=== PATIENT | male | born 1945 | race Caucasian/White ===

== ENCOUNTER 2016-07-14 18:38 | Inpatient (IN) | payer MEDICARE ==
--- NOTE | ~2016-07-14 | DS ---
Discharge Summary [facility] [address] [facility] [place]. [address] NAME: WILY CRUZ : 49 STATUS : DIS IN PAT#: [id number] AGE: 71 ADM/REG DATE : 07/15/16 MR#: [id number] REPORT SERV DATE: 07/19/16 DICTATED BY: SYLVIA MARTIN DATE: 07/18/16 REPORT STATUS : Draft TRANSCRIBED BY: MODL DATE: 07/18/16 ADMISSION DATE: 07/15/2016 DISCHARGE DATE: 07/18/2016 REASON FOR ADMISSION: Acute blood loss anemia and melena. HISTORY OF PRESENT ILLNESS: Please refer to Dr. Seals's history and physical dated 07/14/2016 for complete details regarding the patient's admission. In brief, the patient is admitted to the Hospitalist Service for symptomatic anemia, melena, and acute on chronic anemia. HOSPITAL COURSE: The patient had an uncomplicated hospital course. He presented with hemoglobin 8.1 and it dropped slightly. Ok MUÑOZ was consulted and had written for transfusion of 1 unit packed red blood cells. He had hemoglobin checks, which had been stable since he had a transfusion. Dr. Godfrey placed a PillCam on 07/16/2016, which showed small flecks of blood seen initially in the esophagus and stomach. No sores and no significant bleeding. There was some active mild hemorrhage seen just after passage of the PillCam into the duodenal bulb at approximately 6 minutes and 51 seconds possibly from trauma related to the procedure. The entire remainder of the small bowel was unremarkable. The capsule exited the ileum and entered the cecum at 5 hours and 28 minutes. Two small flecks of blood were also seen in the colon at 6 hours and 42 minutes and 7 hours and 46 minutes, but without any suggestion of bleeding. His hemoglobin had remained stable. His Coumadin was held on admission, and GI Medicine had recommended holding his Coumadin given his strong history of bleeding in the past along with his history of angioectasias. The patient reached maximal hospitalization and will be discharged today in stable condition. DISCHARGE DIAGNOSES: Iron-deficiency anemia and acute loss anemia, now stable; chronic kidney disease stage 3; atrial fibrillation, rate controlled; history of angioectasias; chronic systolic heart failure, compensated. PROCEDURES: Include transfusion of packed red blood cells 1 unit. CONSULTATIONS: Dr. Cuevas and Dr. Godfrey. PROCEDURE: Placement of a PillCam. DISCHARGE MEDICATIONS: Include Xanax 0.5 mg at bedtime, Coreg 6.25 mg twice a day, Celexa 20 mg at bedtime, iron polysaccharide 200 mg twice, Zyrtec 10 mg every morning, losartan 25 mg every morning, Rythmol 300 mg twice a day, spironolactone 25 mg every morning, Protonix 40 mg twice a day, Zofran p.r.n. pain. He is to hold his Coumadin for one week until seen by Dr. Brian, his protohistorian, and continue Lasix 80 mg twice a day. FOLLOWUP: He will follow up with Dr. More in one week and Dr. Brian in a week. Discharge Summary [address] [address] NAME: WILY CRUZ : 49 STATUS : DIS IN PAT#: [id number] AGE: 71 ADM/REG DATE : 07/15/16 MR#: [id number] REPORT SERV DATE: 07/19/16 DICTATED BY: SYLVIA MARTIN DATE: 07/18/16 REPORT STATUS : Draft TRANSCRIBED BY: MODArgenis DATE: 07/18/16 RIZWAN Sylvia Martin MD / [id number] CC: MD Giovany Go D.O. F.A.C.P. James A Tumlin, M.D. Chad Charapata, M.D.
--- NOTE | ~2016-07-14 | CN ---
Consultation Report [facility] [address] [place]. [address] NAME: WILY PATINO : 49 STATUS : ADM Brittanie PAT#: [id number] AGE: 71 ADM/REG DATE : 07/14/16 MR#: [id number] REPORT SERV DATE: 07/15/16 DICTATED BY: DESIRE HART DATE: 07/15/16 REPORT STATUS : Draft TRANSCRIBED BY: MODL DATE: 07/15/16 GI CONSULTATION DATE OF CONSULTATION: 07/15/2016 REASON FOR CONSULTATION: Evaluation and management of melena, acute on chronic anemia, history of GI bleed. HISTORY OF PRESENT ILLNESS: Mr. Patino is a very pleasant 71-year-old male patient, known to Dr. Gray More, who presented to [facility] on 07/14 after he had labs drawn at his program development manager's office and was directed to [facility] for admission for a hemoglobin per their report of 6.9. The patient was just recently in [facility], discharged on 06/24, where he came in for GI bleeding and weakness. He did undergo an upper endoscopy with Dr. Cuevas on 06/24/2016. Findings on that exam showed a single, recently bleeding angioectasia in the stomach that he treated with fulguration. He also had two bleeding angioectasias in the stomach with prior clips, also treated by fulguration, otherwise normal exam. He is on iron tablets. He was subsequently discharged with a hemoglobin of 7.2. At that time, his lowest hemoglobin was 5.9, he did receive transfusions at that time. The states that he has to undergo multiple blood transfusions more often than not. He has a history of atrial fibrillation and she states he has been on multiple anticoagulants, including Pradaxa, Xarelto, and now Coumadin. He has had a very extensive GI evaluation in the past, which included EGDs, colonoscopy as well as a double balloon enteroscopy at the [facility] [place]. The patient states he has chronic black stools. He is on chronic iron therapy, but he states that his stools at this point in time appear darker than his normal. He does not have any abdominal pain, nausea, vomiting, hematemesis, or chest pain. He does endorse weakness, shortness of breath, near syncope with a change in position. He was seen by Dr. More in the office on 07/05. He was to continue his iron and monitor his hemoglobin. He has an INR presently of 2.1. His last hemoglobin was 7.3, which has continued to trend down, and his admission hemoglobin here was 8.1. I have discussed with the patient with his elevated INR, we will let him have a liquid diet today, n.p.o. after midnight, EGD tomorrow with Dr. Godfrey and if no angioectasia is found, possibly deploy a small-bowel capsule at the time of exam for further evaluation. The patient's is growing frustrated with the repeated admissions and states that she is going to talk to their steam drier tender about discontinuing all anticoagulation as well as talking to him about some type of procedure similar to the Watchman device for his atrial fibrillation. PAST MEDICAL HISTORY: Positive for chronic anemia secondary to anemia of chronic disease, iron deficiency, and chronic blood loss secondary to AVMs; atrial fibrillation, on Coumadin; hypertension; hyperlipidemia; GERD; chronic systolic congestive heart failure, his last ejection fraction was 30%; chronic kidney disease stage 3. PAST SURGICAL HISTORY: Cardiac ablation, AICD with pacemaker, cholecystectomy, cataract surgery, EGD, colonoscopy, small-bowel enteroscopy. Consultation Report [address] [place]. [address] NAME: WILY PATINO : 49 STATUS : ADM Brittanie PAT#: [id number] AGE: 71 ADM/REG DATE : 07/14/16 MR#: [id number] REPORT SERV DATE: 07/15/16 DICTATED BY: DESIRE HART DATE: 07/15/16 REPORT STATUS : Draft TRANSCRIBED BY: JET DATE: 07/15/16 ALLERGIES: NO KNOWN DRUG ALLERGIES. HOME MEDICATIONS: Xanax, carvedilol, Zyrtec, Celexa, ferrous polysaccharide, Lasix, losartan, Zofran, Protonix, Rythmol, Aldactone, and Coumadin. SOCIAL HISTORY: He is and retired. Denies alcohol, tobacco, or illicits. FAMILY HISTORY: Noncontributory from a GI standpoint. REVIEW OF SYSTEMS: A 10-point review of systems has been obtained with pertinent positives being addressed in the history of present illness. PERTINENT LABORATORY DATA: Sodium 142, potassium 3.7, BUN is 33, creatinine is 2.03. White count 3, hemoglobin 7.3, hematocrit 24.7, platelet count 132. INR is 2.1. BNP is 112. PHYSICAL EXAMINATION: VITAL SIGNS: Temperature 97.9, pulse 71, respirations 18, and blood pressure 119/61. NEURO: Reveals an alert male, sitting up in the chair with no focal deficits. GENERAL: Cooperative, in no apparent distress. Awake, alert, and oriented x3. HEAD, EARS, EYES, NOSE, AND THROAT: Anicteric. Pupils are equal, round, reactive to light and accommodation. Normocephalic and atraumatic. NECK: No JVD. No palpable nodes. Supple. LUNGS: Diminished throughout with normal respiratory effort exhibited. Equal expansion. CARDIOVASCULAR SYSTEM: Irregular rate and rhythm. ABDOMEN: Soft and nontender. Round abdomen with active bowel sounds. No distention, noting no rebound, guarding, or organomegaly appreciated on exam. EXTREMITIES: No edema. Normal distal pulses. SKIN: Warm, dry, and intact. ASSESSMENT: 1. Anemia, acute on chronic, now symptomatic. 2. History of AVMs, recent gastric with treatment. 3. Atrial fibrillation, on Coumadin. 4. Chronic kidney disease stage 3. 5. Melena with Hemoccult-positive stools in the emergency room on admission. PLAN: 1. Full liquid diet and n.p.o. after midnight. 2. Transfuse one unit of packed red blood cells. 3. Proton pump inhibitor drip to continue. 4. EGD in the morning with questionable small-bowel capsule exam if negative upper endoscopy. 5. We will follow H and H, transfuse if needed. Other recommendations to follow Consultation Report [place] [id number] [place]. [address] NAME: WILY PATINO : 49 STATUS : ADM Brittanie PAT#: [id number] AGE: 71 ADM/REG DATE : 07/14/16 MR#: [id number] REPORT SERV DATE: 07/15/16 DICTATED BY: DESIRE HART DATE: 07/15/16 REPORT STATUS : Draft TRANSCRIBED BY: JET DATE: 07/15/16 endoscopy. DG/JET Downing LUCAS Eng / [id number] CC: MD Giovany Go D.O. F.A.C.P.
--- NOTE | ~2016-07-14 | OP ---
Record Of Operation [facility] [address] [place]. [address] NAME: WILY CRUZ : 49 STATUS : ADM Brittanie PAT#: [id number] AGE: 71 ADM/REG DATE : 07/14/16 MR#: [id number] REPORT SERV DATE: 07/16/16 DICTATED BY: SVETLANA TINOCO DATE: 07/16/16 REPORT STATUS : Draft TRANSCRIBED BY: JET DATE: 07/16/16 DATE OF PROCEDURE: PROCEDURE: Esophagogastroduodenoscopy with PillCam placement. INDICATION: Recurrent anemia and melena. CONSENT: Informed consent was obtained from the patient. Risks and benefits of the procedure as well as possible complications of bleeding, infection, perforation, and allergic reaction to the medicine were described in detail. Questions were entertained and answered. The patient understands and agrees to proceed. Sedation was done per Anesthesia. PROCEDURE IN DETAIL: The patient was laid in the left lateral decubitus position. After sedation was obtained, GIF endoscope was lubricated and inserted into the mouth and driven through the esophagus, stomach, and first and second portions of the duodenum. The scope was passed under direct visualization of the mucosa. On slow withdrawal, first and second portions of the duodenum were unremarkable. Pylorus, antrum, body, and fundus appeared unremarkable. Retroflexion was performed in the fundus, no cardia masses were noted. The scope was straightened and withdrawn to the GE junction which was unremarkable as were the lower, mid, and upper esophagus. The scope was passed back down into the stomach, it was noted that the patient had a previously placed Endoclip in the body of the stomach. Passed on down into the small bowel, again noted a little bit of heme present in the second portion of the duodenum where the scope had passed and caused some minor trauma. The scope was then withdrawn, a PillCam placement device was placed on the scope, then the PillCam was put in the device, and the scope was passed into the esophagus, stomach, and into the first portion of the duodenum where the PillCam was deployed. The scope was then withdrawn. The patient appears to have tolerated the procedure well. IMPRESSION: 1. Status post Endoclip placement with evidence of a clip in the body of the stomach. 2. Status post PillCam placement. RECOMMENDATION: 1. We will hold him n.p.o. for 5 hours, then clear liquids. 2. Continue to monitor H and H and transfuse as needed. DINH/JET Svetlana Tinoco M.D. / [id number] CC: Record Of Operation [address] [address] NAME: WILY CRUZ : 49 STATUS : ADM Brittanie PAT#: [id number] AGE: 71 ADM/REG DATE : 07/14/16 MR#: [id number] REPORT SERV DATE: 07/16/16 DICTATED BY: SVETLANA TINOCO DATE: 07/16/16 REPORT STATUS : Draft TRANSCRIBED BY: JET DATE: 07/16/16 MD Giovany Vang D.O. F.Paulina.Shaun More M.D.
--- NOTE | ~2016-07-14 | HP ---
History And Physical [place] [id number] [facility] [place]. [address] NAME: WILY PATINO : 49 STATUS : ADM Brittanie PAT#: [id number] AGE: 71 ADM/REG DATE : 07/14/16 MR#: [id number] REPORT SERV DATE: 07/15/16 DICTATED BY: SVETLANA MCKEON DATE: 07/14/16 REPORT STATUS : Draft TRANSCRIBED BY: MODArgenis DATE: 07/14/16 DATE OF ADMISSION: 07/14/2016 POINT OF ENTRY: [facility] Emergency Department. PRIMARY SCAFFOLDER: Gray More M.D. PRIMARY SHIP'S ENGINEER: Ivon Ordoñez M.D. PRIMARY ASSISTANT BASEBALL COACH: Wero Malik M.D. CHIEF COMPLAINT: Weakness, shortness of breath, low hemoglobin level. HISTORY OF PRESENT ILLNESS: Mr. Patino is a 71-year-old gentleman with a history of chronic anemia felt to be secondary to anemia of chronic disease as well as iron deficiency anemia from chronic blood loss as well as atrial fibrillation, on anticoagulation; hypertension; hyperlipidemia; as well as chronic kidney disease, stage 3, baseline creatinine approximately 2.2 to 2.3 who presents to the emergency department today with multiple complaints including low hemoglobin levels as noted by his doctor's office as well as weakness, shortness of breath, dizziness, and persistent black tarry stools. The patient was admitted to the Hospitalist Service in June of 2016 for similar complaints. At that time, his hemoglobin level is approximately 5.9. He required two units of packed red blood cell transfusion. Underwent an EGD by Dr. Cuevas, who revealed a single bleeding angioectasia in the stomach as well as two bleeding angioectasias in the stomach with prior clipping, all of which were treated with fulguration. Since then, the patient has required one unit of packed red blood cell transfusion as an outpatient for a hemoglobin level of 6.9. The patient notes that he has had black tarry stools for approximately two years now and these have not changed since his discharge from the hospital. The patient states that he is feeling weak, dizzy with poor appetite, as well as nauseous, as well as primarily shortness of breath, dyspnea on exertion, all of these symptoms which appear seem to worsen as his anemia worsens. Initial evaluation in the emergency department notable for a hemoglobin level of 8.1, he was positive by orthostatic. His occult stool also was positive. Remainder of his labs were otherwise unremarkable. He was subsequently admitted to the Hospitalist Service for further evaluation and management. REVIEW OF SYSTEMS: Comprehensive review of systems is otherwise negative unless listed in history of present illness. PREVIOUS MEDICAL HISTORY: 1. Chronic anemia, felt to be secondary to anemia of chronic disease as well as iron deficiency anemia from chronic blood loss. History And Physical [address] [address] NAME: WILY PATINO : 49 STATUS : ADM Brittanie PAT#: [id number] AGE: 71 ADM/REG DATE : 07/14/16 MR#: [id number] REPORT SERV DATE: 07/15/16 DICTATED BY: SVETLANA MCKEON DATE: 07/14/16 REPORT STATUS : Draft TRANSCRIBED BY: JET DATE: 07/14/16 2. Atrial fibrillation, on anticoagulation. 3. Hypertension. 4. Hyperlipidemia. 5. Gastroesophageal reflux disease. 6. Chronic systolic congestive heart failure, reported ejection fraction of 30% to 40%. 7. Chronic kidney disease, stage 3, baseline creatinine approximately 2.2 to 2.3. PAST SURGICAL HISTORY: 1. Cardiac ablation. 2. AICD pacemaker insertion. 3. Cholecystectomy. 4. Cataract surgery. 5. Multiple EGDs and colonoscopies for his chronic anemia. ALLERGIES: NO KNOWN DRUG ALLERGIES. HOME MEDICATIONS: 1. Xanax 0.5 mg at bedtime. 2. Carvedilol 6.25 mg b.i.d. 3. Zyrtec 10 mg daily. 4. Celexa 20 mg at bedtime. 5. Ferrous polysaccharide 200 mg b.i.d. 6. Lasix 80 mg b.i.d. 7. Losartan 25 mg daily. 8. Zofran 8 mg t.i.d. p.r.n. 9. Protonix 40 mg b.i.d. 10.Rythmol 300 mg b.i.d. 11.Aldactone 25 mg daily. 12.Coumadin 2.5 mg at bedtime. SOCIAL HISTORY: Denies any tobacco, alcohol, or illicits. FAMILY MEDICAL HISTORY: Significant for hypertension as well as coronary artery disease. LABS AND IMAGIN. White count is 4.2, hemoglobin is 8.1, hematocrit is 27.3, platelets are 168. INR is 2.1. 2. Sodium is 137, potassium 4.6, chloride 98, carbon dioxide 28, BUN 37, creatinine 2.26, glucose is 153, calcium is 8.1, protein is 6.6, albumin is 3.7, bilirubin is 0.5, ALT is 38, AST 65, alkaline phosphatase is 114. 3. EKG per my review shows a paced rhythm. PHYSICAL EXAMINATION: VITAL SIGNS: Temperature is 97.9 degrees Fahrenheit, pulse is 74, respirations 24, saturating 100% on room air. Blood pressure 121/60, on recheck, blood pressure is now 119/69. GENERAL: The patient is awake, alert, in no acute distress. Resting comfortably. He is a History And Physical [address] [place]. [address] NAME: WILY PATINO : 49 STATUS : ADM Brittanie PAT#: [id number] AGE: 71 ADM/REG DATE : 07/14/16 MR#: [id number] REPORT SERV DATE: 07/15/16 DICTATED BY: SVETLANA MCKEON DATE: 07/14/16 REPORT STATUS : Draft TRANSCRIBED BY: JET DATE: 07/14/16 well-developed, well-nourished, elderly male. HEENT: Atraumatic and normocephalic. Moist mucous membranes. Pupils equal, round, reactive to light and accommodation. Extraocular eye movements intact. No scleral icterus. NECK: No jugular venous distention. No carotid bruits. CARDIAC: Regular rate and rhythm. He does have a 2/6 systolic murmur heard best over left lower sternal border. LUNGS: Clear to auscultation bilaterally. No wheezes, rhonchi, or crackles. ABDOMEN: Obese soft, nontender, nondistended. Good bowel sounds. No rebound, guarding, or rigidity. EXTREMITIES: Warm and well perfused with 2+ lower extremity edema with chronic venous stasis changes. No cyanosis, clubbing, or edema. SKIN: Warm and dry. PSYCH: Affect appropriate. NEURO: Alert and oriented x3. Cranial nerves II through XII grossly intact. Speech is normal. Gait not assessed. ASSESSMENT AND PLAN: Mr. Patino is a 71-year-old gentleman, who presents with reportedly low hemoglobin levels as well as evidence of symptomatic anemia with shortness of breath, dyspnea on exertion, weakness, and dizziness. PROBLEM LIST: 1. Acute on chronic anemia. 2. Symptomatic anemia. 3. Dyspnea on exertion and weakness. 4. Chronic kidney disease, stage 3. 5. Atrial fibrillation, on anticoagulation. 6. Chronic systolic congestive heart failure. PLAN: 1. Acute on chronic anemia. The patient's hemoglobin was 8.1, therefore we will hold off on blood transfusion at this time. We will transfuse if his hemoglobin is less than 7. We will hold the patient's Coumadin. Place the patient on a Protonix, bolus, and drip, and check q.6 hour hemoglobin and hematocrit and consult GI for evaluation in the morning and possible repeat EGD. 2. Symptomatic anemia. The patient does report weakness, dyspnea on exertion, and dizziness concerning for possible symptomatic anemia. However, I will still hold off on transfusion at this time, given his reported history of chronic systolic congestive heart failure of which we do not have an accurate ejection fraction. 3. Shortness of breath, dyspnea on exertion. Suspect this is all due to anemia, but we will check chest x-ray as well as BNP level. We will hold his Lasix in the meantime and hold his antihypertensives for systolic less than 120. 4. Chronic systolic congestive heart failure. The patient does have some lower extremity edema; however, his lungs are clear. We will check a chest x-ray as well as a BNP level, holding his Lasix overnight, given positive orthostatic vital signs and worsening of his chronic anemia. 5. Chronic kidney disease, stage 3. The patient appears to be within his recent baseline. We will continue to monitor. History And Physical [address] [address] NAME: WILY PATINO : 49 STATUS : ADM Brittanie PAT#: [id number] AGE: 71 ADM/REG DATE : 07/14/16 MR#: [id number] REPORT SERV DATE: 07/15/16 DICTATED BY: SVETLANA MCKEON DATE: 07/14/16 REPORT STATUS : Draft TRANSCRIBED BY: JET DATE: 07/14/16 6. Atrial fibrillation on anticoagulation. Holding the patient's Coumadin, given ongoing bleeding and worsening of his chronic anemia. 7. DVT prophylaxis. The patient is therapeutically anticoagulated at this time. CODE STATUS: The patient wished to be full code. JCB/MODL Svetlana Mckeon MD / [id number] CC: MD Giovany Vang D.O. F.A.C.P. Timothy Talbert, M.D. Lindsay C Crawford, M.D. Chad Charapata, M.D.
[~2016-07-14 18:38] MED LIST: AMARYL2 PO; ASAB PO; AUG875 PO; C1 PO; C25 PO; CELEXA20 PO; CORDARONE PO; COREG12 PO; COREG6 PO; COZ25 PO; EZFE 200200 MG PO; GLUCPH PO; HYZAAR 100/25 T1 TAB PO; IRON325 MG PO; K-TABS10 MEQ PO; L40 PO; L80 PO; MOTRIN IB200 MG PO; MULTIPLE VIT PO; PRADAXA150 MG PO; PRILO PO; PROTONIX PO; RYTHMOL300 MG PO; SPIRO25 PO; VITAMIN D1000 UNI1 PO; X5 PO; XARELTO15 MG PO; ZOCOR10 PO; ZYRTEC ALLGY10 MG PO
[2016-07-14 20:13] LABS: A/G RATIO 1.3 (0.7-1.9); ALBUMIN 3.7 G/DL (3.5-5.0); ALKALINE PHOSPHATASE 114 U/L (45-117); BUN (BLOOD UREA NITROGEN) 37 MG/DL (6-23); CALCIUM, SERUM 8.1 MG/DL (8.5-10.4); CHLORIDE, SERUM 98 MMOL/L (96-112); CO2 (CARBON DIOXIDE) 28 MMOL/L (24-34); CREATININE 2.26 MG/DL (0.70-1.30); GFR AFRICAN AMERICAN 33 ML/MIN (>=60); GFR NON AFRICAN AMERICAN 29 ML/MIN (>=60); GLOBULIN 2.9 G/DL (2.5-4.1); GLUCOSE, SERUM 153 MG/DL (60-99); POTASSIUM, SERUM 4.6 MMOL/L (3.5-5.3); SGOT(AST) 65 U/L (5-40); SGPT(ALT) 38 U/L (5-65); SODIUM, SERUM 137 MMOL/L (135-148); TOTAL BILIRUBIN 0.5 MG/DL (0-1.2); TOTAL PROTEIN 6.6 G/DL (6.0-8.5)
[2016-07-14] MEDS ORDERED: PROTONIX PO (21:30)
[2016-07-14] MEDS ORDERED: X5 PO (21:30)
[2016-07-14] MEDS ORDERED: CELEXA20 PO (21:31)
[2016-07-14] MEDS ORDERED: EZFE 200200 MG PO (21:31)
[2016-07-14] MEDS ORDERED: ZOFRAN8 PO (21:32)
[2016-07-14] MEDS ORDERED: COREG6 PO (21:33)
[2016-07-14] MEDS ORDERED: COZ25 PO (21:33)
[2016-07-14] MEDS ORDERED: C25 PO (21:33)
[2016-07-14] MEDS ORDERED: L80 PO (21:35)
[2016-07-14] MEDS ORDERED: SPIRO25 PO (21:36)
[2016-07-14] MEDS ORDERED: RYTHMOL300 MG PO (21:36)
[2016-07-14] MEDS ORDERED: ZYRTEC ALLGY10 MG PO (21:36)
[2016-07-14 21:51] LABS: BASOPHILS ABSOLUTE 0.04 10/3/uL (0.0-0.16); EOSINOPHILS 5.7 %; EOSINOPHILS ABSOLUTE 0.24 10/3/uL (0.0-0.53); ER CBC TAT 0 Hrs 11 Mins; HEMOGLOBIN 8.1 g/dL (13.6-17.8); IMMATURE GRANULOCYTES 0.2 %; IMMATURE GRANULOCYTES ABSOLUTE 0.01 10/3/uL (0.0-0.11); LYMPHOCYTES 24.3 %; LYMPHOCYTES ABSOLUTE 1.02 10/3/uL (0.67-4.30); MEAN CORPUS HGB CONC 29.7 g/dL (32.0-36.0); MEAN CORPUSCULAR HEMOGLOB 24.5 pg (26.0-34.0); MEAN PLATELET VOLUME 10.7 fL (9.2-13.0); MONOCYTES 16.7 %; NEUTROPHILS 52.1 %; NEUTROPHILS ABSOLUTE 2.19 10/3/uL (2.02-8.40); RBC DISTRIBUTION WIDTH 17.3 % (12.0-16.0); RED CELL COUNT 3.31 10/6/uL (4.7-6.1); WHITE BLOOD CELLS 4.2 10/3/uL (4.5-10.5)
[2016-07-14 21:53] LABS: HEMATOCRIT 27.3 % (40.0-51.0); MANUAL DIFF NO %; MEAN CORPUSCULAR VOLUME 82.5 fL (80-100); PLATELET COUNT 168 10/3/uL (150-400)
[2016-07-14 21:57] LABS: INTERNATIONAL NORMAL RATI 2.1 UNITS (-); PROTIME (NOT ORD) 23.7 SEC (12.0-14.5)
[2016-07-14 21:58] LABS: PARTIAL THROMBO TIME 35.4 SEC (22.5-37.2)
[2016-07-15 01:14] LABS: HEMATOCRIT 25.1 % (40.0-51.0); HEMOGLOBIN 7.5 g/dL (13.6-17.8)
[2016-07-15 01:34] LABS: FREE T4 1.23 NG/DL (0.76-1.46); ULTRASENSITIVE TSH 3.05 MCIU/ML (0.358-3.740)
[2016-07-15 08:25] LABS: BASOPHILS 0.7 %; BASOPHILS ABSOLUTE 0.02 10/3/uL (0.0-0.16); EOSINOPHILS 5.6 %; EOSINOPHILS ABSOLUTE 0.17 10/3/uL (0.0-0.53); HEMATOCRIT 24.7 % (40.0-51.0); HEMOGLOBIN 7.3 g/dL (13.6-17.8); IMMATURE GRANULOCYTES 0.3 %; IMMATURE GRANULOCYTES ABSOLUTE 0.01 10/3/uL (0.0-0.11); LYMPHOCYTES 24.7 %; LYMPHOCYTES ABSOLUTE 0.75 10/3/uL (0.67-4.30); MEAN CORPUS HGB CONC 29.6 g/dL (32.0-36.0); MEAN CORPUSCULAR HEMOGLOB 24.7 pg (26.0-34.0); MEAN CORPUSCULAR VOLUME 83.4 fL (80-100); MEAN PLATELET VOLUME 10.1 fL (9.2-13.0); MONOCYTES 13.8 %; MONOCYTES ABSOLUTE 0.42 10/3/uL (0.21-1.20); NEUTROPHILS 54.9 %; NEUTROPHILS ABSOLUTE 1.67 10/3/uL (2.02-8.40); PLATELET COUNT 132 10/3/uL (150-400); RBC DISTRIBUTION WIDTH 17.2 % (12.0-16.0); RED CELL COUNT 2.96 10/6/uL (4.7-6.1)
[2016-07-15 08:27] LABS: MANUAL DIFF NO %
[2016-07-15 08:37] LABS: CALCIUM, SERUM 8.6 MG/DL (8.5-10.4); CHLORIDE, SERUM 104 MMOL/L (96-112); CO2 (CARBON DIOXIDE) 28 MMOL/L (24-34); CREATININE 2.03 MG/DL (0.70-1.30); GFR AFRICAN AMERICAN 38 ML/MIN (>=60); GFR NON AFRICAN AMERICAN 32 ML/MIN (>=60); POTASSIUM, SERUM 3.7 MMOL/L (3.5-5.3); SODIUM, SERUM 142 MMOL/L (135-148)
[2016-07-15 08:38] LABS: BUN (BLOOD UREA NITROGEN) 33 MG/DL (6-23); GLUCOSE, SERUM 87 MG/DL (60-99)
[2016-07-15 13:13] LABS: HEMATOCRIT 25.1 % (40.0-51.0); HEMOGLOBIN 7.5 g/dL (13.6-17.8)
[2016-07-15 22:57] LABS: HEMOGLOBIN 8.9 g/dL (13.6-17.8)
[2016-07-15 22:58] LABS: HEMATOCRIT 29.3 % (40.0-51.0)
[2016-07-16 06:28] LABS: INTERNATIONAL NORMAL RATI 2.1 UNITS (-); PROTIME (NOT ORD) 23.5 SEC (12.0-14.5)
[2016-07-16 06:38] LABS: BUN (BLOOD UREA NITROGEN) 28 MG/DL (6-23); CALCIUM, SERUM 8.8 MG/DL (8.5-10.4); CHLORIDE, SERUM 103 MMOL/L (96-112); CO2 (CARBON DIOXIDE) 29 MMOL/L (24-34); CREATININE 1.84 MG/DL (0.70-1.30); GFR AFRICAN AMERICAN 42 ML/MIN (>=60); GFR NON AFRICAN AMERICAN 37 ML/MIN (>=60); GLUCOSE, SERUM 86 MG/DL (60-99); SODIUM, SERUM 142 MMOL/L (135-148)
[2016-07-16 06:59] LABS: BASOPHILS 0.5 %; BASOPHILS ABSOLUTE 0.02 10/3/uL (0.0-0.16); EOSINOPHILS 4.6 %; EOSINOPHILS ABSOLUTE 0.17 10/3/uL (0.0-0.53); HEMOGLOBIN 7.8 g/dL (13.6-17.8); IMMATURE GRANULOCYTES 0.3 %; IMMATURE GRANULOCYTES ABSOLUTE 0.01 10/3/uL (0.0-0.11); LYMPHOCYTES 21.5 %; LYMPHOCYTES ABSOLUTE 0.79 10/3/uL (0.67-4.30); MEAN CORPUSCULAR HEMOGLOB 25.1 pg (26.0-34.0); MEAN CORPUSCULAR VOLUME 83.6 fL (80-100); MEAN PLATELET VOLUME 10.7 fL (9.2-13.0); MONOCYTES ABSOLUTE 0.55 10/3/uL (0.21-1.20); NEUTROPHILS 58.1 %; NEUTROPHILS ABSOLUTE 2.13 10/3/uL (2.02-8.40); PLATELET COUNT 128 10/3/uL (150-400); RBC DISTRIBUTION WIDTH 16.8 % (12.0-16.0); RED CELL COUNT 3.11 10/6/uL (4.7-6.1); WHITE BLOOD CELLS 3.7 10/3/uL (4.5-10.5)
[2016-07-16 07:02] LABS: MANUAL DIFF NO %
[2016-07-17 15:53] LABS: BASOPHILS 0.3 %; BASOPHILS ABSOLUTE 0.01 10/3/uL (0.0-0.16); EOSINOPHILS ABSOLUTE 0.15 10/3/uL (0.0-0.53); HEMATOCRIT 27.8 % (40.0-51.0); LYMPHOCYTES 17.1 %; LYMPHOCYTES ABSOLUTE 0.64 10/3/uL (0.67-4.30); MEAN CORPUS HGB CONC 28.8 g/dL (32.0-36.0); MEAN CORPUSCULAR HEMOGLOB 24.5 pg (26.0-34.0); MEAN CORPUSCULAR VOLUME 85.3 fL (80-100); MEAN PLATELET VOLUME 10.6 fL (9.2-13.0); MONOCYTES 14.4 %; MONOCYTES ABSOLUTE 0.54 10/3/uL (0.21-1.20); NEUTROPHILS 64.2 %; NEUTROPHILS ABSOLUTE 2.41 10/3/uL (2.02-8.40); PLATELET COUNT 99 10/3/uL (150-400); RED CELL COUNT 3.26 10/6/uL (4.7-6.1); WHITE BLOOD CELLS 3.8 10/3/uL (4.5-10.5)
[2016-07-17 15:55] LABS: MANUAL DIFF NO %
[2016-07-17 16:01] LABS: CALCIUM, SERUM 8.6 MG/DL (8.5-10.4); CHLORIDE, SERUM 103 MMOL/L (96-112); CO2 (CARBON DIOXIDE) 28 MMOL/L (24-34); CREATININE 1.93 MG/DL (0.70-1.30); GFR AFRICAN AMERICAN 40 ML/MIN (>=60); GFR NON AFRICAN AMERICAN 35 ML/MIN (>=60); PHOSPHORUS, SERUM 2.6 MG/DL (2.5-4.5); SODIUM, SERUM 139 MMOL/L (135-148)
[2016-07-17 16:02] LABS: BUN (BLOOD UREA NITROGEN) 22 MG/DL (6-23); GLUCOSE, SERUM 123 MG/DL (60-99)
[2016-07-17 16:25] LABS: ANISOCYTOSIS 1+ (5-10/OIF) (0-5/OIF); HYPOCHROMIA 1+ (3-10/OIF) (0-2/OIF); PLATELET ESTIMATE DEC (ADEQUATE); POIKILOCYTOSIS 1+ (5-10/OIF) (0-5/OIF)
[2016-07-18 06:24] LABS: BASOPHILS 0.5 %; BASOPHILS ABSOLUTE 0.02 10/3/uL (0.0-0.16); EOSINOPHILS 4.5 %; EOSINOPHILS ABSOLUTE 0.18 10/3/uL (0.0-0.53); HEMATOCRIT 26.7 % (40.0-51.0); IMMATURE GRANULOCYTES 0.3 %; IMMATURE GRANULOCYTES ABSOLUTE 0.01 10/3/uL (0.0-0.11); LYMPHOCYTES 21.2 %; LYMPHOCYTES ABSOLUTE 0.84 10/3/uL (0.67-4.30); MEAN CORPUSCULAR HEMOGLOB 25.4 pg (26.0-34.0); MEAN CORPUSCULAR VOLUME 84.8 fL (80-100); MEAN PLATELET VOLUME 11.3 fL (9.2-13.0); MONOCYTES 15.2 %; NEUTROPHILS 58.3 %; NEUTROPHILS ABSOLUTE 2.31 10/3/uL (2.02-8.40); PLATELET COUNT 127 10/3/uL (150-400); RED CELL COUNT 3.15 10/6/uL (4.7-6.1)
[2016-07-18 06:25] LABS: MANUAL DIFF NO %
[2016-07-18 06:28] LABS: BUN (BLOOD UREA NITROGEN) 23 MG/DL (6-23); CALCIUM, SERUM 8.5 MG/DL (8.5-10.4); CHLORIDE, SERUM 101 MMOL/L (96-112); CO2 (CARBON DIOXIDE) 29 MMOL/L (24-34); CREATININE 1.87 MG/DL (0.70-1.30); GFR AFRICAN AMERICAN 42 ML/MIN (>=60); GFR NON AFRICAN AMERICAN 36 ML/MIN (>=60); PHOSPHORUS, SERUM 2.8 MG/DL (2.5-4.5); SODIUM, SERUM 140 MMOL/L (135-148)
[2016-07-18 06:32] LABS: GLUCOSE, SERUM 91 MG/DL (60-99)
== END 2016-07-18 16:39 | disposition home or self-care (01) | DRG 378 ==
LOC: ER 18:38 → 6NO 22:58
PROVIDERS: Emergency Medicine; Internal Medicine; Internal Medicine Gastroenterology; Nurse Practitioner Family
PROC: 30233N1 Transfusion of Nonautologous Red Blood Cells into Peripheral Vein, Percutaneous Approach (ICD-10-PCS; 2016-07-15)
PROC: 0DJ07ZZ Inspection of Upper Intestinal Tract, Via Natural or Artificial Opening (ICD-10-PCS; principal; 2016-07-16 08:45)
DX: K92.1 Melena (principal); D62 Acute posthemorrhagic anemia; I50.22 Chronic systolic (congestive) heart failure; I13.0 Hypertensive heart and chronic kidney disease with heart failure and stage 1 through stage 4 chronic kidney disease, or unspecified chronic kidney disease; E11.22 Type 2 diabetes mellitus with diabetic chronic kidney disease; J44.9 Chronic obstructive pulmonary disease, unspecified; K74.60 Unspecified cirrhosis of liver; K21.9 Gastro-esophageal reflux disease without esophagitis; N18.3 Chronic kidney disease, stage 3 (moderate); Z95.810 Presence of automatic (implantable) cardiac defibrillator; Z79.01 Long term (current) use of anticoagulants
CPT/HCPCS: 36415; 71010; 80048; 80053; 82962; 83735; 83880; 84100; 84439; 84443; 85014; 85018; 85025; 85610; 85730; 86850; 86870; 86900; 86901; 86902; 86920; 86922; 93005; 99285; A9270-GY; C9113; P9016